=== PATIENT | male | born 1980 | race Caucasian/White ===

== ENCOUNTER 2023-06-30 10:40 | Outpatient (CLI) | payer BC, SELFPAY | END 2023-06-30 10:41 | disposition home or self-care (01) | PROVIDERS: PCP Family Medicine; Visit Provider Family Medicine | DX: C62.90 Malignant neoplasm of unspecified testis, unspecified whether descended or undescended (principal); R10.9 Unspecified abdominal pain; Z13.6 Encounter for screening for cardiovascular disorders | CPT/HCPCS: 80048; 80061; 82105; 84704 ==

== ENCOUNTER 2025-09-26 09:14 | Outpatient (CLI) | payer BC, SELFPAY | END 2025-09-26 09:15 | disposition home or self-care (01) | PROVIDERS: PCP Family Medicine; Visit Provider Family Medicine | DX: C62.12 Malignant neoplasm of descended left testis (principal) | CPT/HCPCS: 80048; 80061; 82105; 83615; 84702 ==